=== PATIENT | female | born 1940 | race Caucasian/White ===

== ENCOUNTER → 2021-07-05 12:17 | Outpatient (CLI) | payer MEDICARE, OTHER, SELFPAY ==
--- NOTE | 2021-07-05 12:50 | DI.CT.S_ITS ---
PROCEDURE: CT LE RT WO CON INDICATIONS: Other fracture of unspecified lower leg TECHNIQUE: Noncontrast 1-1.5 mm axial sections acquired from above the tibiotalar joint to the bottom of the calcaneus, with coronal and sagittal reformats. COMPARISON: None. FINDINGS: Image quality: Excellent. Bones: Postsurgical changes are seen in the distal tibia and fibula. At the distal fibula, there is a lateral plate and screw construct as well as a single interfragmentary screw and a transsyndesmotic screw. The metallic hardware is intact without signs of loosening. The distal fibular fracture line demonstrates healing changes including solid osseous bridging involving the majority (estimated 90%) of the fracture line. A metallic screw is seen at the medial malleolus, and there is an additional metallic screw at the posteromedial distal tibia. There is solid osseous fusion involving approximately 75 % of the fracture line with mild residual lucency at the anterior and posterior medial margins. The majority of the posterior malleolar fracture fragment is ununited, with small areas of solid osseous fusion to the medial malleolar fragment posterior medially and to the posterior tibial plafond laterally, estimated to represent approximately 10% of the fracture line. The tip of the syndesmotic screw is located within the fracture line. No osteochondral lesion is seen in the talar dome. There is mild degenerative spurring of the dorsal talonavicular joint. Posterior and plantar calcaneal enthesophytes are present. Soft tissues: There is thickening and internal calcifications within the midportion of the Achilles tendon, compatible with chronic tendinosis. However, the tendons, ligaments, and articular cartilages are not well evaluated with CT. There is mild generalized fatty infiltration of the lower leg musculature. Arterial vascular calcifications are present. IMPRESSION: 1. Postsurgical changes from internal fixation of a prior trimalleolar fracture. The metallic hardware is intact without signs of loosening. 2. Nearly completely healed distal fibular fracture with osseous bridging across approximately 90% of the fracture line. 3. Medial malleolar fracture fragment demonstrates solid osseous fusion involving approximately 75% of the fracture line. 4. Lucency is seen along the posterior tibial fracture line, with approximately 10% osseous bridging. 5. Achilles tendinosis. Dictated by: Jonah Gaines M.D. on 07/05/2021 at 14:45 Approved by: Jonah Gaines M.D. on 07/05/2021 at 14:57
== END ==
PROVIDERS: Family Provider Family Medicine; PCP Nurse Practitioner Adult Health; Referring Provider Podiatrist; Visit Provider Podiatrist
DX: S82.851D Displaced trimalleolar fracture of right lower leg, subsequent encounter for closed fracture with routine healing (principal); X58.XXXD Exposure to other specified factors, subsequent encounter
CPT/HCPCS: 73700